=== PATIENT | male | born 1985 | race Hispanic/Latino ===

== ENCOUNTER 2019-08-20 09:06 | Emergency (ER) | payer BC ==
[~2019-08-20] VITALS: Ht 180.3 cm; Wt 99.8 kg
[2019-08-20] MEDS ORDERED: FLUORESCEIN SOD(OPTH) 1 MG STRP ONE (09:27)
[2019-08-20] MEDS ORDERED: MAXITROL EYE DRO5 ML OU (09:29)
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
== END 2019-08-20 09:40 | disposition home or self-care (01) ==
LOC: FSED 09:28
DX: H16.133 Photokeratitis, bilateral (principal); H57.13 Ocular pain, bilateral; F17.210 Nicotine dependence, cigarettes, uncomplicated
CPT/HCPCS: 99282

== ENCOUNTER 2022-03-17 11:33 | Emergency (ER) | payer BC ==
[~2022-03-17] VITALS: Ht 180.3 cm; Wt 107.6 kg
[~2022-03-17 11:33] MED LIST: MAXITROL EYE DRO5 ML OU
[2022-03-17] MEDS ORDERED: KETOROLAC TROMETHAMINE 30 MG/ML VIAL IV STA (12:42)
[2022-03-17] MEDS ORDERED: KETOROLAC TROME10 MG PO (13:03)
[2022-03-17] MEDS ORDERED: CYCLOBENZAPRINE5 MG PO (13:03)
== END 2022-03-17 13:23 | disposition home or self-care (01) ==
LOC: FSED 11:48
DX: R07.2 Precordial pain (principal); M54.9 Dorsalgia, unspecified; G89.29 Other chronic pain
CPT/HCPCS: 71045; 80053; 82553; 84484; 85025; 85379; 93005; 96374; 99284; J1885